=== PATIENT | male | born 1990 | race Caucasian/White ===

== ENCOUNTER 2017-05-11 11:34 | Emergency (ER) | payer SELFPAY ==
[2017-05-11 11:45] VITALS: BP 170/94
--- NOTE | 2017-05-11 13:38 | ED Physician Documentation ---
PD HPI URI - Stated complaint Stated Complaint: FEVER,DIARRHEA - Chief complaint Chief Complaint: General - History obtained from History obtained from: Patient - History of Present Illness Timing - onset: Yesterday Timing duration: Days (2) Timing details: Abrupt onset, Still present (though vomiting has tapered) Associated symptoms: Chills. No: Fever, Nasal congestion, Dry cough Contributing factors: Other (he says he stayed at an apartment of a friend who had awoke with a bat on his chest and was recommended to get rabies vaccines, and this was a week ago. The patient did not have any known contact with the bat. But he is concerned that his illness is rabies.) Similar symptoms before: Follow up Recently seen: Not recently seen Review of Systems Constitutional: reports: Chills, Myalgias. denies: Fever Neurologic: denies: Generalized weakness, Focal weakness, Numbness, Near syncope , Altered mental status, Headache Endocrine: denies: Polydypsia, Polyuria Immunocompromised: denies: Immunocompromised PD PAST MEDICAL HISTORY - Past Medical History Cardiovascular: None Respiratory: None Neuro: None Endocrine/Autoimmune: None GI: None - Present Medications Home Medications: Ambulatory Orders Medication Instructions Recorded Confirmed Dexamethasone [Decadron] 4 mg PO DAILY #5 tablet 05/11/17 Diphenoxylate HCl/Atropine 1 each PO Q6H PRN #12 tablet 05/11/17 [Diphenoxylate-Atrop 2.5-0.025] Ondansetron Odt [Zofran] 4 mg TL Q6H PRN #10 tablet 05/11/17 - Allergies Allergies/Adverse Reactions: Allergies Allergy/AdvReac Type Severity Reaction Status Date / Time Penicillins Allergy Edema Verified 05/11/17 13:39 PD ED PE NORMAL - Vitals Vital signs reviewed: Yes - General General: Alert and oriented X 3, No acute distress, Well developed/nourished - HEENT HEENT: PERRL (nonicteric), Pharynx benign - Neck Neck: Supple, no meningeal sign, No adenopathy - Cardiac Cardiac: RRR, No murmur - Respiratory Respiratory: Clear bilaterally - Abdomen Abdomen: Normal bowel sounds, Soft, Non tender, Non distended - Male Male : Deferred - Rectal Rectal: Deferred - Back Back: No CVA TTP - Derm Derm: Normal color, Warm and dry - Extremities Extremities: No deformity, No tenderness to palpate - Neuro Neuro: Alert and oriented X 3, No motor deficit, Normal speech Results - Vitals Vitals: Oxygen O2 Source Room air - Labs Labs: Laboratory Tests 05/11/17 11:50 Influenza A (Rapid) Negative Influenza B (Rapid) Negative Influenza Types A,B Ag - PD MEDICAL DECISION MAKING - ED course Complexity details: considered differential (seems viral GE. Referenced CDC and Uptodate to verify and confirmed that current symptoms would not indicate concern for rabies. ), d/w patient Departure - Departure Disposition: 01 Home, Self Care Clinical Impression: Nausea vomiting and diarrhea, Viral gastroenteritis Condition: Stable Record reviewed to determine appropriate education?: Yes Instructions: ED Gastroenteritis Viral Prescriptions: Dexamethasone [Decadron] 4 mg PO DAILY #5 tablet Diphenoxylate HCl/Atropine [Diphenoxylate-Atrop 2.5-0.025] 1 each PO Q6H PRN # 12 tablet PRN Reason: Diarrhea Ondansetron Odt [Zofran] 4 mg TL Q6H PRN #10 tablet PRN Reason: Nausea / Vomiting Comments: This sounds likely to be a viral intestinal infection that commonly lasts for a day or 2 and then perhaps a few more days of just feeling yucky. Drink lots of fluids. Tylenol or ibuprofen if needed for fevers or pains. He can use ondansetron if needed for nausea and Lomotil for diarrhea. If you are still feeling generally ill into tomorrow you can use the Decadron as an anti- inflammatory to reduce symptoms as well. Recheck if not well improved over 2-3 days. Forms: Activity restrictions Discharge Date/Time: 05/11/17 15:04
[2017-05-11] MEDS ORDERED: ONDANSETRON ODT 4 MG TABLET TL STA (14:13)
[2017-05-11] MEDS ORDERED: DIPHENOX/ATROPINE 2.5/0.025 MG TABLET PO STA (14:13)
[2017-05-11] MEDS ORDERED: IBUPROFEN 600 MG TABLET PO STA (14:13)
== END 2017-05-11 15:04 | disposition home or self-care (01) ==
LOC: ED 11:34
DX: A08.4 Viral intestinal infection, unspecified (principal)
CPT/HCPCS: 87275; 87276; 99283; A9270; Q0162